=== PATIENT | male | born 1930 | race Caucasian/White ===

== ENCOUNTER 2018-07-06 23:26 | Inpatient (IN) | payer MEDICARE ==
[2018-07-07] LABS: Basophils # (Auto) 0.1 K/mm3 (0.0-0.1); Basophils % (Auto) 1.6 % (0.0-1.8); Eosinophils # (Auto) 0.1 K/mm3 (0.0-0.4); Eosinophils % (Auto) 1.3 % (0.0-4.3); Hematocrit 39.8 % (35.5-45.6); Hemoglobin 13.4 gm/dl (11.8-15.2); Lymphocytes # (Auto) 3.1 K/mm3 (1.2-5.4); Lymphocytes % (Auto) 38.8 % (13.4-35.0); Mean Corpuscular HGB Conc 34 % (32-34); Mean Corpuscular Volume 114 fl (84-94); Monocytes # (Auto) 1.1 K/mm3 (0.0-0.8); Monocytes % (Auto) 14.2 % (0.0-7.3); Platelet Count 196 K/mm3 (140-440); Red Blood Count 3.48 M/mm3 (3.65-5.03); Red Cell Distribution Width 12.8 % (13.2-15.2)
--- NOTE | 2018-07-07 00:05 | Emergency Department Report ---
ED Neuro Deficit HPI - General Chief Complaint: Neuro Symptoms/Deficit Stated Complaint: NUMBNESS IN FEET Time Seen by Provider: 07/06/18 23:42 Source: patient, family, RN notes reviewed Mode of arrival: Ambulatory Limitations: No Limitations - History of Present Illness Initial Comments: Primary care Dr.: Dr. Law Cardiology: Dr. Hugo This is an 88-year-old gentleman who was brought to the hospital by family for possible code stroke. Patient complains of bilateral plantar foot numbness, and subjective right leg numbness, which started yesterday. Symptoms are painless. They're constant. They do not radiate anywhere. He do not have exacerbating or relieving factors. The patient complains of chronic global headache. He indicates that the headache is not sudden or thunderclap in nature. He makes no complaint of jaw claudication or change in vision He believes that his symptoms started yesterday, 24 hours ago. They're constant, they're painless, they do not radiate anywhere, and they don't have exacerbating or relieving factors. -: Sudden Location: left leg, right leg Presenting Symptoms: Absent: Weak/Paralyzed One Side (patient complains of bilateral plantar foot numbness, and subjective right leg numbness and weakness), Sudden, Severe Headache, Blurred/Loss of Vision, Facial Droop/Numbness, Unable to Speak Clearly, Altered Mental Status History of same: No Place: home Severity: mild Quality: weak Improves With: none Worsens With: none Context: gradual onset - Related Data Allergies/Adverse Reactions: Allergies Allergy/AdvReac Type Severity Reaction Status Date / Time No Known Allergies Allergy Unverified 07/06/18 23:29 ED Review of Systems ROS: Stated complaint: NUMBNESS IN FEET Other details as noted in HPI Constitutional: denies: fever Eyes: denies: eye discharge ENT: denies: dental pain, epistaxis Respiratory: denies: cough Cardiovascular: denies: syncope Gastrointestinal: denies: abdominal pain, nausea, vomiting Genitourinary: denies: urgency Musculoskeletal: denies: back pain Skin: denies: rash, lesions Neurological: headache, weakness, numbness Psychiatric: denies: anxiety ED Neuro Physical Exam - General Limitations: No Limitations General appearance: alert, in no apparent distress Suspected Stroke: No - Head Head exam: Present: atraumatic, normocephalic - Eye Eye exam: Present: normal appearance, EOMI, other (visual acuity intact to finger counting, color perception, reading at a close distance). Absent: nystagmus - ENT ENT exam: Present: normal exam, normal orophraynx, mucous membranes moist, normal external ear exam - Neck Neck exam: Present: normal inspection, full ROM. Absent: tenderness, me ningismus - Respiratory Respiratory exam: Present: normal lung sounds bilaterally. Absent: respiratory distress - Cardiovascular Cardiovascular Exam: Present: regular rate, normal rhythm, normal heart sounds. Absent: bradycardia, tachycardia, irregular rhythm, systolic murmur, diastolic murmur, rubs, gallop - GI/Abdominal GI/Abdominal exam: Present: soft. Absent: distended, tenderness, guarding, rebound, rigid, pulsatile mass - Rectal Rectal exam: Present: deferred - Extremities Exam Extremities exam: Present: normal inspection, full ROM, other (2+ pulses noted in the bilateral upper, lower extremities. Compartments soft. No long bony tenderness. The pelvis is stable.). Absent: pedal edema, joint swelling, calf tenderness - Back Exam Back exam: Present: normal inspection, full ROM. Absent: tenderness, CVA tenderness (R), paraspinal tenderness, vertebral tenderness - Neurological Exam Neurological exam: Present: alert, oriented X3, normal gait, other (Extraocular movements intact. Tongue midline. No facial droop. Facial sensation intact to light touch in the V1, V2, V3 distribution bilaterally. 5 and 5 strength in 4 extremities.. Sensation is intact to light touch in 4 extremities.). Absent: motor sensory deficit - NIHSS Assessment Interval: Baseline 1a. Level of Consciousness: alert/keenly responsive 1b. LOC Questions: answers both correctly 1c. LOC Commands: performs tasks correctly 2. Best Gaze: normal 3. Visual: no visual loss 4. Facial Palsy: normal symmetrical movement 5b. Motor Arm Right: no drift 5a. Motor Arm Left: no drift 6a. Motor Leg Left: no drift 6b. Motor Leg Right: no drift 7. Limb Ataxia: absent 8. Sensory: normal 9. Best Language: no aphasia 10. Dysarthria: normal 11. Extinction/Inattention: no abnormality Total Score: 0 Stroke Severity: No Stroke Symptoms - Psychiatric Psychiatric exam: Present: normal affect, normal mood - Skin Skin exam: Present: warm, dry, intact, normal color. Absent: rash ED Course Vital Signs 07/06/18 07/07/18 07/07/18 23:32 00:00 00:10 Temperature 97.3 F L Pulse Rate 108 H 79 Respiratory 18 13 16 Rate Blood Pressure 121/69 128/83 O2 Sat by Pulse 95 97 98 Oximetry 07/07/18 07/07/18 00:30 01:00 Temperature Pulse Rate 70 64 Respiratory 12 19 Rate Blood Pressure 134/73 130/76 O2 Sat by Pulse 98 97 Oximetry - Lab Data Result diagrams: 07/06/18 23:48 07/06/18 23:48 Lab Results 07/06/18 07/06/18 07/06/18 Range/Units 23:48 23:48 23:48 WBC 7.9 (4.5-11.0) K/mm3 RBC 3.48 L (3.65-5.03) M/mm3 Hgb 13.4 (11.8-15.2) gm/dl Hct 39.8 (35.5-45.6) % MCV 114 H (84-94) fl MCH 39 H (28-32) pg MCHC 34 (32-34) % RDW 12.8 L (13.2-15.2) % Plt Count 196 (140-440) K/mm3 Lymph % (Auto) 38.8 H (13.4-35.0) % [place] % (Auto) 14.2 H (0.0-7.3) % Eos % (Auto) 1.3 (0.0-4.3) % Baso % (Auto) 1.6 (0.0-1.8) % Lymph # 3.1 (1.2-5.4) K/mm3 [place] # 1.1 H (0.0-0.8) K/mm3 Eos # 0.1 (0.0-0.4) K/mm3 Baso # 0.1 (0.0-0.1) K/mm3 Seg Neutrophils % 44.1 (40.0-70.0) % Seg Neutrophils # 3.5 (1.8-7.7) K/mm3 PT 13.8 (12.2-14.9) Sec. INR 1.00 (0.87-1.13) APTT 29.7 (24.2-36.6) Sec. Thrombin Time (15.1-19.6) Sec. Sodium 137 (137-145) mmol/L Potassium 5.0 (3.6-5.0) mmol/L Chloride 103.0 (98-107) mmol/L Carbon Dioxide 21 L (22-30) mmol/L Anion Gap 18 mmol/L BUN 21 H (9-20) mg/dL Creatinine 0.7 L (0.8-1.5) mg/dL Estimated GFR > 60 ml/min BUN/Creatinine Ratio 30 % Glucose 131 H (75-100) mg/dL Calcium 9.4 (8.4-10.2) mg/dL Troponin T < 0.010 (0.00-0.029) ng/mL 07/06/18 Range/Units 23:48 WBC (4.5-11.0) K/mm3 RBC (3.65-5.03) M/mm3 Hgb (11.8-15.2) gm/dl Hct (35.5-45.6) % MCV (84-94) fl MCH (28-32) pg MCHC (32-34) % RDW (13.2-15.2) % Plt Count (140-440) K/mm3 Lymph % (Auto) (13.4-35.0) % [place] % (Auto) (0.0-7.3) % Eos % (Auto) (0.0-4.3) % Baso % (Auto) (0.0-1.8) % Lymph # (1.2-5.4) K/mm3 [place] # (0.0-0.8) K/mm3 Eos # (0.0-0.4) K/mm3 Baso # (0.0-0.1) K/mm3 Seg Neutrophils % (40.0-70.0) % Seg Neutrophils # (1.8-7.7) K/mm3 PT (12.2-14.9) Sec. INR (0.87-1.13) APTT (24.2-36.6) Sec. Thrombin Time 16.7 (15.1-19.6) Sec. Sodium (137-145) mmol/L Potassium (3.6-5.0) mmol/L Chloride (98-107) mmol/L Carbon Dioxide (22-30) mmol/L Anion Gap mmol/L BUN (9-20) mg/dL Creatinine (0.8-1.5) mg/dL Estimated GFR ml/min BUN/Creatinine Ratio % Glucose (75-100) mg/dL Calcium (8.4-10.2) mg/dL Troponin T (0.00-0.029) ng/mL Lab Results 07/06/18 07/06/18 07/06/18 Range/Units 23:48 23:48 23:48 WBC 7.9 (4.5-11.0) K/mm3 RBC 3.48 L (3.65-5.03) M/mm3 Hgb 13.4 (11.8-15.2) gm/dl Hct 39.8 (35.5-45.6) % MCV 114 H (84-94) fl MCH 39 H (28-32) pg MCHC 34 (32-34) % RDW 12.8 L (13.2-15.2) % Plt Count 196 (140-440) K/mm3 Lymph % (Auto) 38.8 H (13.4-35.0) % [place] % (Auto) 14.2 H (0.0-7.3) % Eos % (Auto) 1.3 (0.0-4.3) % Baso % (Auto) 1.6 (0.0-1.8) % Lymph # 3.1 (1.2-5.4) K/mm3 [place] # 1.1 H (0.0-0.8) K/mm3 Eos # 0.1 (0.0-0.4) K/mm3 Baso # 0.1 (0.0-0.1) K/mm3 Seg Neutrophils % 44.1 (40.0-70.0) % Seg Neutrophils # 3.5 (1.8-7.7) K/mm3 PT 13.8 (12.2-14.9) Sec. INR 1.00 (0.87-1.13) APTT 29.7 (24.2-36.6) Sec. Thrombin Time (15.1-19.6) Sec. Sodium 137 (137-145) mmol/L Chloride 103.0 (98-107) mmol/L Carbon Dioxide 21 L (22-30) mmol/L BUN 21 H (9-20) mg/dL Creatinine 0.7 L (0.8-1.5) mg/dL Estimated GFR > 60 ml/min BUN/Creatinine Ratio 30 % Glucose 131 H (75-100) mg/dL Calcium 9.4 (8.4-10.2) mg/dL Troponin T < 0.010 (0.00-0.029) ng/mL 07/06/18 Range/Units 23:48 WBC (4.5-11.0) K/mm3 RBC (3.65-5.03) M/mm3 Hgb (11.8-15.2) gm/dl Hct (35.5-45.6) % MCV (84-94) fl MCH (28-32) pg MCHC (32-34) % RDW (13.2-15.2) % Plt Count (140-440) K/mm3 Lymph % (Auto) (13.4-35.0) % [place] % (Auto) (0.0-7.3) % Eos % (Auto) (0.0-4.3) % Baso % (Auto) (0.0-1.8) % Lymph # (1.2-5.4) K/mm3 [place] # (0.0-0.8) K/mm3 Eos # (0.0-0.4) K/mm3 Baso # (0.0-0.1) K/mm3 Seg Neutrophils % (40.0-70.0) % Seg Neutrophils # (1.8-7.7) K/mm3 PT (12.2-14.9) Sec. INR (0.87-1.13) APTT (24.2-36.6) Sec. Thrombin Time 16.7 (15.1-19.6) Sec. Sodium (137-145) mmol/L Chloride (98-107) mmol/L Carbon Dioxide (22-30) mmol/L BUN (9-20) mg/dL Creatinine (0.8-1.5) mg/dL Estimated GFR ml/min BUN/Creatinine Ratio % Glucose (75-100) mg/dL Calcium (8.4-10.2) mg/dL Troponin T (0.00-0.029) ng/mL Vital Signs 07/06/18 07/07/18 23:32 00:10 Temperature 97.3 F L Pulse Rate 108 H Respiratory 18 16 Rate Blood Pressure 121/69 O2 Sat by Pulse 95 98 Oximetry 07/07/18 00:45 This is a normal sinus, 69 beats minute, left axis deviation, prolonged QRS complex, borderline right bundle branch block, not having chest pain, abnormal EKG, unchanged from prior EKG from 09/16/2008, his EKG is not consistent with ST elevation myocardial infarction. - Radiology Data Radiology results: report reviewed, image reviewed Noncontrast CT scan of the brain is interpreted as negative for acute disease - Medical Decision Making Differential diagnosis, including but not limited to: Plantar fasciitis, peripheral neuropathy, lumbar radiculopathy, strokes, transient ischemic attack Assessment and plan: 88-year-old gentleman with a complaint of bilateral plantar foot numbness, and reported weakness and numbness in the right lower extremity, symptoms reportedly started 24 hours ago. The patient has a GCS of 15. The patient has an NIH score of 0 on my assessment. He is afebrile, with reassuring vital signs, and has a benign and unremarkable physical examination. In the history and physical, duration of symptoms reported at greater than 4.5 hours, not a TPA candidate. In addition, given that he reports symptoms present for greater than 24 hours, and given his unremarkable neurologic examination, a large vessel occlusion is quite unlikely, and the patient my pain does not require emergent CT angiogram. The patient was interviewed by consulting stroke neurologist, Dr. Wong, who agreed with the aforementioned, and recommended admission for subacute stroke workup/TIA workup. Discussed recommendation for admission with patient and family, who verbalized understanding, and who are amenable to this plan of care. Case presented to the Hospital physician, Dr. Hugo, who has accepted the patient to the internal medicine service. - Core Measures Measure Exclusions: not indicated - Thrombolytic Inclusion/Exclusion Thrombolytic Exclusion Criteria: Symptom Onset > 3 Hours Thrombolytic Contraindications: Rapidily Improving s/s Critical care attestation.: If time is entered above; I have spent that time in minutes in the direct care of this critically ill patient, excluding procedure time. ED Disposition Clinical Impression: TIA (transient ischemic attack) Disposition: OP ADMIT IP TO THIS HOSP Is pt being admited?: Yes Does the pt Need Aspirin: Yes Condition: Stable
[2018-07-07 00:11] LABS: Partial Thromboplastin Time 29.7 Sec. (24.2-36.6)
[2018-07-07 00:15] LABS: BUN/Creatinine Ratio 30; Blood Urea Nitrogen 21 mg/dL (9-20); Calcium 9.4 mg/dL (8.4-10.2); Hemolysis Index 143
--- NOTE | 2018-07-07 00:18 | Emergency Department Report ---
HPI - General Chief Complaint: Neuro Symptoms/Deficit Time Seen by Provider: 07/06/18 23:42 - HPI HPI: [facility] Tele[facility] Consult [facility] Asked to see this patient in telemedicine consultation. Consultation was performed with assistance of ancillary/medical staff at bedside. Comments: Last Known normal 1 day ago Door Time: 2333 [facility] Contacted: 2354 [facility] first log in: 000 NIHSS assessment time: 003 Call back time: 003 Needle Time: no iv tpa HPI: 88 yom with headache since yesterday presents to ED with one day b/l feet numbness with weakness. He denies any focal weakness in his arms or change in speech or vision. He states he also had mild chest pain today as well. He denies prior stroke and states he takes an asa daily. CT scan head per my review was negative for acute process VSS Gen Wn/Wd in Nad TeleStroke Assessment: LOC: 0 LOC questions: 0 LOC Commands : 0 Gaze : 0 Visual gardner : 0 Facial movements : 0 Upper limb Motor 0 Lower limb Motor 0 Limb Coordination - 0 Sensory - - 1 Language - 0 Speech - 0 Neglect / extinction - 0 NIHSS Score: 1 IMPRESSION TIA RO Stroke Medical Decision Making: Patient is not candidate for alteplase due to non focal / localizing exam and onset greater than 4.5hrs Not an IR candidate as low clinical suspicion for LVO by neurologic asses sment. Recommendations: - Daily antithrombotics to initiate now if no contraindication. - Further work up with Stroke labs, MRI brain, ECHO, NIVS Carotid will be deferred to inpt neurology service - Needs Inpatient Neurology consultation and follow up - Thank you for allowing us to participate in the care of your patient, if there are any questions please don't hesitate to contact us Discussed plan of care with patient/family/hospital staff Physician: Laura Wong DO [facility] ED Review of Systems ROS: Stated complaint: NUMBNESS IN FEET Other details as noted in HPI Physical Exam - Physical Exam Vital Signs: Vital Signs 07/06/18 23:32 Temperature 97.3 F L Pulse Rate 108 H Respiratory 18 Rate Blood Pressure 121/69 O2 Sat by Pulse 95 Oximetry ED Course Vital Signs 07/06/18 23:32 Temperature 97.3 F L Pulse Rate 108 H Respiratory 18 Rate Blood Pressure 121/69 O2 Sat by Pulse 95 Oximetry ED Medical Decision Making - Lab Data Result diagrams: 07/06/18 23:48 Critical care attestation.: If time is entered above; I have spent that time in minutes in the direct care o f this critically ill patient, excluding procedure time. ED Disposition Clinical Impression: TIA (transient ischemic attack) Disposition: DC-[id number] OP ADMIT IP TO THIS HOSP Is pt being admited?: Yes Condition: Stable
[2018-07-07] MEDS ORDERED: BABY ASPIRIN PO ONE (00:48)
--- NOTE | 2018-07-07 01:44 | History and Physical Report ---
History of Present Illness Date of examination: 07/07/18 History of present illness: 88-year-old man with a history of "weak heart" comes to emergency room with complaints of legs feeling numb and heavy Review of systems Constitutional: no weight loss, chills, fever Ears, eyes, nose, mouth and throat: no nasal congestion, no nasal discharge, no sinus pressure, no vision change, no red eye. Neck: No neck pain or rigidity. Cardiovascular: no palpitations, chest pain Respiratory: no cough, shortness of breath Gastrointestinal: no hematochezia, abdominal pain Genitourinary : no frequency , no hematuria Musculoskeletal: no joint swelling or muscle ache Integumentary: no rash, no pruritis Neurological:+ parathesias, no focal weakness Endocrine: no cold or heat intolerance, no polyuria or polydipsia Hematologic/Lymphatic: no easy bruising, no easy bleeding, no gland swelling Allergic/Immunologic: no urticaria, no angioedema. PAST MEDICAL HISTORY: "weak heart" PAST SURGICAL HISTORY: Hernia repair SOCIAL HISTORY: Denies alcohol, drugs, tobacco FAMILY HISTORY: Hypertension Medications and Allergies Allergies Allergy/AdvReac Type Severity Reaction Status Date / Time No Known Allergies Allergy Unverified 07/06/18 23:29 Exam - Physical Exam Narrative exam: General Apperance: The patient lying in bed, breathing comfortable HEENT: Normocephalic, atraumatic. Pupils equally round and reactive to light, EOMI, no sclericterus or JVD or thyromegaly or nodule. , no carotid bruit, mucous membranes moist, no exudate or erythema Heart: S1-S2, regular is rhythm Lungs: Clear to auscultation bilaterally, breathing comfortable Abdomen: Positive bowel sounds, soft, nontender, nondistended, no organomegaly Extremities: No edema cyanosis clubbing Skin: no rash, nodule, warm and dry Neuro: cranial nerves 2-12 intact, speech is fluent, motor/sensory intact - Constitutional Vitals: Temp Pulse Resp BP Pulse Ox 97.3 F L 64 19 130/76 97 07/06/18 23:32 07/07/18 01:00 07/07/18 01:00 07/07/18 01:00 07/07/18 01:00 Results - Labs CBC & Chem 7: 07/06/18 23:48 07/06/18 23:48 Labs: Abnormal lab results 07/06/18 07/06/18 Range/Units 23:48 23:48 RBC 3.48 L (3.65-5.03) M/mm3 MCV 114 H (84-94) fl MCH 39 H (28-32) pg RDW 12.8 L (13.2-15.2) % Lymph % (Auto) 38.8 H (13.4-35.0) % [place] % (Auto) 14.2 H (0.0-7.3) % [place] # 1.1 H (0.0-0.8) K/mm3 Carbon Dioxide 21 L (22-30) mmol/L BUN 21 H (9-20) mg/dL Creatinine 0.7 L (0.8-1.5) mg/dL Glucose 131 H (75-100) mg/dL - Imaging and Cardiology CT Scan - head: report reviewed Assessment and Plan Assessment TIA Weak heart Plan Admit to medicine [place] MRI of the head and neck, echo Do neuro checks, sunscreen Neurologic, Physical and Nutritional Therapy Start Aspirin, Statin, DVT Prophylaxis
[2018-07-07] MEDS ORDERED: BABY ASPIRIN ONE (03:55)
[2018-07-07] MEDS ORDERED: DULCOLAX PR PRN (05:39)
[2018-07-07] MEDS ORDERED: ZOFRAN IV PRN (05:39)
[2018-07-07] MEDS ORDERED: SODIUM CHLORIDE FLUSH SYRINGE 10 ML IV PRN (05:39)
[2018-07-07] MEDS ORDERED: TYLENOL PO PRN (05:39)
[2018-07-07] MEDS ORDERED: APRESOLINE IV PRN (06:38)
--- NOTE | 2018-07-07 08:36 | Cat Scan Report ---
PROCEDURE: CT HEAD/BRAIN WO CON TECHNIQUE: Computerized tomography of the head was performed without contrast material. CT DOSE LENGTH PRODUCT: mGycm HISTORY: neuro deficits <6hrs or sx present upon awakening COMPARISONS: None . FINDINGS: Skull and scalp: Normal . Paranasal sinuses: Normal . Ventricles and subarachnoid spaces: There is mild central and cortical atrophy. There is no hydrocep halus or acute. Cerebrum: No evidence of hemorrhage, acute infarction or mass . There is chronic deep white matter i schemic gliosis. There is large calcifications in the basal ganglia. Cerebellum and brainstem: No evidence of hemorrhage, acute infarction or mass . Vasculature: Normal . IMPRESSION: There is no hemorrhage, edema, mass, mass effect or midline shift. There are chronic inv olutional and ischemic changes. . Dr. Brown was notified by telephone at 11:00 PM central time. This document is electronically signed by Kai Arredondo MD., July 07 2018 12:08:13 AM ET
--- NOTE | 2018-07-07 09:49 | Magnetic Resonance Report ---
MRI OF THE BRAIN WITHOUT CONTRAST: HISTORY: Stroke PROCEDURE: Multiplanar, multisequence MR imaging of the brain without IV contrast was performed. FINDINGS: Compared to the CT head dated 07/06/18. Moderate diffuse volume loss is evident. The brain parenchyma signal intensity and its stone white interface are within normal limits on all sequences otherwise. No evidence for acute ischemia, hemorrhage or mass. No chronic infarct or extra-axial fluid collection. The midline structures are central. The basal cisterns are patent. Normal ventricular size. The orbital cavities and sella turcica demonstrate no abnormality. The visualized paranasal sinuses and mastoid air cells are well aerated. IMPRESSION: Moderate diffuse volume loss. No acute intracranial process.
--- NOTE | 2018-07-07 09:52 | Magnetic Resonance Report ---
MRA HEAD WITHOUT CONTRAST HISTORY: Stroke. [id number] imaging with MIP reformations of the [place] is submitted. The arteries appear widely patent and free of hemodynamically significant stenosis, aneurysm or dissection. 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 There is filling of the right A2 segment via a patent anterior communicating artery. A small left posterior communicating artery is also identified. IMPRESSION: Normal variant MRA head
[2018-07-07] MEDS ORDERED: LOVENOX SUB-Q SCH (10:00)
[2018-07-07] MEDS ORDERED: ASPIRIN PO SCH (10:00)
--- NOTE | 2018-07-07 12:27 | Progress Note ---
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 responsible for symptoms see ED note Objective - Vital Sign Vital Signs - 12hr 07/07/18 07/07/18 07/07/18 00:30 01:00 01:30 Temperature Pulse Rate 70 64 60 Respiratory 12 19 24 Rate Blood Pressure 134/73 130/76 137/76 Blood Pressure [Left] O2 Sat by Pulse 98 97 98 Oximetry 07/07/18 07/07/18 07/07/18 02:00 02:30 03:00 Temperature Pulse Rate 64 65 70 Respiratory 21 17 22 Rate Blood Pressure 130/80 148/82 135/80 Blood Pressure [Left] O2 Sat by Pulse 98 97 98 Oximetry 07/07/18 07/07/18 07/07/18 03:30 03:40 03:50 Temperature Pulse Rate 83 62 62 Respiratory 16 21 13 Rate Blood Pressure 134/77 140/68 129/74 Blood Pressure [Left] O2 Sat by Pulse 83 L 98 97 Oximetry 07/07/18 07/07/18 07/07/18 04:00 04:10 04:20 Temperature Pulse Rate 59 L 62 59 L Respiratory 23 23 17 Rate Blood Pressure 134/75 134/75 129/69 Blood Pressure [Left] O2 Sat by Pulse 96 98 99 Oximetry 07/07/18 07/07/18 07/07/18 04:30 04:40 05:30 Temperature 97.8 F Pulse Rate 62 64 76 Respiratory 26 H 22 16 Rate Blood Pressure 135/73 135/73 Blood Pressure 145/80 [Left] O2 Sat by Pulse 98 99 94 Oximetry 07/07/18 07/07/18 07/07/18 05:55 06:00 06:10 Temperature Pulse Rate 64 63 Respiratory 14 14 Rate Blood Pressure 135/73 133/80 133/80 Blood Pressure [Left] O2 Sat by Pulse 97 100 100 Oximetry 07/07/18 07/07/18 07/07/18 06:20 06:30 06:40 Temperature Pulse Rate 62 64 62 Respiratory 14 13 14 Rate Blood Pressure 135/73 127/75 131/83 Blood Pressure [Left] O2 Sat by Pulse 100 100 100 Oximetry 07/07/18 07/07/18 07/07/18 06:50 07:00 07:10 Temperature Pulse Rate 64 61 66 Respiratory 15 12 13 Rate Blood Pressure 147/86 148/82 147/86 Blood Pressure [Left] O2 Sat by Pulse 100 100 100 Oximetry 07/07/18 07/07/18 07/07/18 07:20 07:30 07:40 Temperature Pulse Rate 62 66 66 Respiratory 16 17 12 Rate Blood Pressure 127/71 127/71 127/71 Blood Pressure [Left] O2 Sat by Pulse 100 100 100 Oximetry 07/07/18 07/07/18 07/07/18 07:50 08:00 08:10 Temperature Pulse Rate 66 59 L 59 L Respiratory 13 13 14 Rate Blood Pressure 127/71 124/67 127/71 Blood Pressure [Left] O2 Sat by Pulse 100 100 100 Oximetry 07/07/18 08:20 Temperature Pulse Rate 60 Respiratory 12 Rate Blood Pressure 131/75 Blood Pressure [Left] O2 Sat by Pulse 100 Oximetry - Laboratory Findings CBC and BMP: 07/06/18 23:48 07/06/18 23:48 Abnormal Lab Findings: Abnormal Labs 07/06/18 07/06/18 23:48 23:48 RBC 3.48 L MCV 114 H MCH 39 H RDW 12.8 L Lymph % (Auto) 38.8 H [place] % (Auto) 14.2 H [place] # 1.1 H Carbon Dioxide 21 L BUN 21 H Creatinine 0.7 L Glucose 131 H
--- NOTE | 2018-07-07 14:16 | Consultation ---
History of Present Illness Consult date: 07/07/18 Consult reason: chest pain, known to you History of present illness: Patient is an 88 year old man who presented with bilateral foot numbness and is undergoing Neurology evaluation for rule out acute CVA. Patient is known to [facility] and a cardiac consultation was requested for evaluation of atypical chest pain. Patient denies chest pain on exertion. He reports mild chest pain at times but is currently chest pain free. He has no unusual shortness of breath or palpitations. His ECG is sinus rhythm with a chronic RBBB. An outpatient echocardiogram done 6 months ago reports a normal left ventricular systolic function, ejection fraction 55%. Medications and Allergies Allergies Allergy/AdvReac Type Severity Reaction Status Date / Time No Known Allergies Allergy Unverified 07/06/18 23:29 Home Medications Medication Instructions Recorded Confirmed Last Taken Type No Known Home Medications [No 07/07/18 07/07/18 Unknown History Reported Home Medications] Active Meds: Active Medications Acetaminophen (Tylenol) 650 mg PO Q4H PRN PRN Reason: Pain, Mild (1-3) Aspirin (Aspirin) 325 mg PO QDAY [facility] Last Admin: 07/07/18 10:05 Dose: 325 mg Documented by: Bisacodyl (Dulcolax) 10 mg SC QDAY PRN PRN Reason: Constipation Enoxaparin Sodium (Lovenox) 40 mg SUB-Q QDAY [facility] Last Admin: 07/07/18 10:05 Dose: 40 mg Documented by: Hydralazine HCl (Apresoline) 5 mg IV Q6H PRN PRN Reason: Hypertension Ondansetron HCl (Zofran) 4 mg IV Q8H PRN PRN Reason: Nausea And Vomiting Pravastatin Sodium (Pravachol) 20 mg PO QHS [facility] Sodium Chloride (Sodium Chloride Flush Syringe 10 Ml) 10 ml IV PRN PRN PRN Reason: LINE FLUSH Physical Examination Vital Signs Temp Pulse Resp BP Pulse Ox 97.3 F L 108 H 18 121/69 95 07/06/18 23:32 07/06/18 23:32 07/06/18 23:32 07/06/18 23:32 07/06/18 23:32 General appearance: no acute distress HEENT: Positive: PERRL Neck: Positive: trachea midline Cardiac: Positive: Reg Rate and Rhythm Lungs: Positive: Decreased Breath Sounds Neuro: Positive: Grossly Intact Extremities: Absent: edema Results 07/06/18 23:48 07/06/18 23:48 Coagulation 07/06/18 Range/Units 23:48 PT 13.8 (12.2-14.9) Sec. INR 1.00 (0.87-1.13) APTT 29.7 (24.2-36.6) Sec. CBC 07/06/18 Range/Units 23:48 WBC 7.9 (4.5-11.0) K/mm3 RBC 3.48 L (3.65-5.03) M/mm3 Hgb 13.4 (11.8-15.2) gm/dl Hct 39.8 (35.5-45.6) % Plt Count 196 (140-440) K/mm3 Lymph # 3.1 (1.2-5.4) K/mm3 [place] # 1.1 H (0.0-0.8) K/mm3 Eos # 0.1 (0.0-0.4) K/mm3 Baso # 0.1 (0.0-0.1) K/mm3 Comprehensive Metabolic Panel 07/06/18 Range/Units 23:48 Sodium 137 (137-145) mmol/L Potassium 5.0 (3.6-5.0) mmol/L Chloride 103.0 (98-107) mmol/L Carbon Dioxide 21 L (22-30) mmol/L BUN 21 H (9-20) mg/dL Creatinine 0.7 L (0.8-1.5) mg/dL Glucose 131 H (75-100) mg/dL Calcium 9.4 (8.4-10.2) mg/dL Assessment and Plan Bilateral foot numbness brain MRI -no acute intracranial process head MRA -normal normal head CT scan Hypertension Atypical Chest pain
--- NOTE | 2018-07-07 16:13 | Progress Note ---
Assessment and Plan Assessment and plan: Patient is an 88 year old man without chronic medical problem except for "weak heart" who presented with bilateral foot numbness r/o CVA and chest pains described as a tightness not jessica. His ECG is sinus rhythm with a chronic RBBB. An outpatient echocardiogram done 6 months ago reports a normal left ventricular systolic function, ejection fraction 55%. 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 Follow-up on current diagnosis CP. Overnight uneventful. Patient denies any chest pain, shortness breath, nausea/vomiting or severe headaches. Imaging, nursing note, chart, labs and old chart reviewed. Discussed with patient, son Simon at bedside. Hospitalist Physical - Physical exam Narrative exam: Gen: cachetic, bmi 15.2, NAD, Awake, Alert, Orientated HEENT: NCAT, EOMI, PERRL, OP Clear Neck: supple, no adenopathy, no thyromegaly, no JVD CVS/Heart: RRR, normal S1S2, pulses present bilaterally Chest/Lungs: CTA B, Symmetrical chest expansion, good air entry bilaterally GI/Abdomen: soft, NTND, good bowel sounds, no guarding or rebound /Bladder: no suprapubic tenderness, no CVA or paraspinal tenderness Extermity/Skin: no c/c/e, no obvious rash MSK: FROM x 4 Neuro: CN 2-12 grossly intact, no new focal deficits Psych: calm - Constitutional Vitals: Temp Pulse Resp BP Pulse Ox 97.8 F 60 12 131/75 100 07/07/18 05:30 07/07/18 08:20 07/07/18 08:20 07/07/18 08:20 07/07/18 08:20 General appearance: Present: no acute distress Results - Labs CBC & Chem 7: 07/06/18 23:48 07/06/18 23:48 Labs: Laboratory Last Values WBC 7.9 K/mm3 (4.5-11.0) 07/06/18 23:48 RBC 3.48 M/mm3 (3.65-5.03) L 07/06/18 23:48 Hgb 13.4 gm/dl (11.8-15.2) 07/06/18 23:48 Hct 39.8 % (35.5-45.6) 07/06/18 23:48 MCV 114 fl (84-94) H 07/06/18 23:48 MCH 39 pg (28-32) H 07/06/18 23:48 MCHC 34 % (32-34) 07/06/18 23:48 RDW 12.8 % (13.2-15.2) L 07/06/18 23:48 Plt Count 196 K/mm3 (140-440) 07/06/18 23:48 Lymph % (Auto) 38.8 % (13.4-35.0) H 07/06/18 23:48 [place] % (Auto) 14.2 % (0.0-7.3) H 07/06/18 23:48 Eos % (Auto) 1.3 % (0.0-4.3) 07/06/18 23:48 Baso % (Auto) 1.6 % (0.0-1.8) 07/06/18 23:48 Lymph # 3.1 K/mm3 (1.2-5.4) 07/06/18 23:48 [place] # 1.1 K/mm3 (0.0-0.8) H 07/06/18 23:48 Eos # 0.1 K/mm3 (0.0-0.4) 07/06/18 23:48 Baso # 0.1 K/mm3 (0.0-0.1) 07/06/18 23:48 Seg Neutrophils % 44.1 % (40.0-70.0) 07/06/18 23:48 Seg Neutrophils # 3.5 K/mm3 (1.8-7.7) 07/06/18 23:48 PT 13.8 Sec. (12.2-14.9) 07/06/18 23:48 INR 1.00 (0.87-1.13) 07/06/18 23:48 APTT 29.7 Sec. (24.2-36.6) 07/06/18 23:48 Thrombin Time 16.7 Sec. (15.1-19.6) 07/06/18 23:48 Sodium 137 mmol/L (137-145) 07/06/18 23:48 Potassium 5.0 mmol/L (3.6-5.0) 07/06/18 23:48 Chloride 103.0 mmol/L (98-107) 07/06/18 23:48 Carbon Dioxide 21 mmol/L (22-30) L 07/06/18 23:48 Anion Gap 18 mmol/L 07/06/18 23:48 BUN 21 mg/dL (9-20) H 07/06/18 23:48 Creatinine 0.7 mg/dL (0.8-1.5) L 07/06/18 23:48 Estimated GFR > 60 ml/min 07/06/18 23:48 BUN/Creatinine Ratio 30 % 07/06/18 23:48 Glucose 131 mg/dL (75-100) H 07/06/18 23:48 Calcium 9.4 mg/dL (8.4-10.2) 07/06/18 23:48 Troponin T < 0.010 ng/mL (0.00-0.029) 07/06/18 23:48 Active Medications - Current Medications Current Medications: Generic Name Dose Route Start Last Admin Trade Name Freq PRN Reason Stop Dose Admin Acetaminophen 650 mg 07/07/18 05:39 Tylenol PO Q4H PRN Pain, Mild (1-3) Aspirin 325 mg 07/07/18 10:00 07/07/18 10:05 Aspirin PO 325 mg QDAY [facility] Administration Bisacodyl 10 mg 07/07/18 05:39 Dulcolax RI QDAY PRN Constipation Enoxaparin Sodium 40 mg 07/07/18 10:00 07/07/18 10:05 Lovenox SUB-Q 40 mg QDAY [facility] Administration Hydralazine HCl 5 mg 07/07/18 06:38 Apresoline IV Q6H PRN Hypertension Ondansetron HCl 4 mg 07/07/18 05:39 Zofran IV Q8H PRN Nausea And Vomiting Pravastatin Sodium 20 mg 07/07/18 22:00 Pravachol PO QHS JAMAR Sodium Chloride 10 ml 07/07/18 05:39 Sodium Chloride Flush Syringe 10 Ml IV PRN PRN LINE FLUSH Nutrition/Malnutrition Assess - Dietary Evaluation Nutrition/Malnutrition Findings: Nutrition Notes Start: 07/07/18 14:05 Freq: Status: Active Protocol: Document 07/07/18 14:05 LM (Rec: 07/07/18 14:28 LM [id number]) Co-Sign 07/07/18 14:05 LP Nutrition Notes 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 Noted lunch at bedside w/100% eaten. Pt stated his usual bodyweight was 165 lb last year. Pt has dentures but said he had no trouble chewing. No temporal or orbital wasting . 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 No Is Patient Ambulatory and/or Out of Bed Yes REE-([place]-St. Jeor-ambulatory/OOB) [ 1632.644 NUTR.[id number]] Kcal/Kg value to use for calculation 41 Approximate Energy Requirements Using 2140 kcal/Kg Calculation Used for Recommendations Kcal/kg Additional Notes Protein needs: 63-78g (1.2-1.5 g/kg) Fluids: 1 ml/kcal Nutrition Intervention Change Diet Order: Continue cardiac diet Add Supplement/Snack (indicate name/kcal Ensure Enlive 1 daily /protein ) Provides kCal: 350 Provides Protein (gm) 20 Goal #1 Continue meet at least 75% of energy and protein needs Goal #2 Weight maintenence and/or gain Anticipated Discharge Needs: Cardiac diet Follow-Up By: 07/09/18 Additional Comments F/U: PO and ONS intakes
--- NOTE | 2018-07-07 17:52 | Consultation ---
History of Present Illness Consult date: 07/07/18 Chief complaint: bilateral intermittant foot numbness History of present illness: This is a very pleasant 88 YO M who presented with bilateral foot numbness. Says when he puts on his house shoes he has trouble feeling them and his feet feel funny. Feels better in "real " shoes. On further questioning his hands also "fall asleep". Not diabetic. Has had some of this previously but seemed more prominent on Friday when this happened. Not currently numb. No recent trauma or illness. Past History Past Medical History: other (heart disease) Past Surgical History: hernia repair Social history: lives with family Family history: hypertension Medications and Allergies Allergies Allergy/AdvReac Type Severity Reaction Status Date / Time No Known Allergies Allergy Unverified 07/06/18 23:29 Home Medications Medication Instructions Recorded Confirmed Last Taken Type No Known Home Medications [No 07/07/18 07/07/18 Unknown History Reported Home Medications] Active Meds: Active Medications Acetaminophen (Tylenol) 650 mg PO Q4H PRN PRN Reason: Pain, Mild (1-3) Aspirin (Aspirin) 325 mg PO QDAY [facility] Last Admin: 07/07/18 10:05 Dose: 325 mg Documented by: Bisacodyl (Dulcolax) 10 mg AR QDAY PRN PRN Reason: Constipation Enoxaparin Sodium (Lovenox) 40 mg SUB-Q QDAY [facility] Last Admin: 07/07/18 10:05 Dose: 40 mg Documented by: Hydralazine HCl (Apresoline) 5 mg IV Q6H PRN PRN Reason: Hypertension Ondansetron HCl (Zofran) 4 mg IV Q8H PRN PRN Reason: Nausea And Vomiting Pravastatin Sodium (Pravachol) 20 mg PO QHS [facility] Sodium Chloride (Sodium Chloride Flush Syringe 10 Ml) 10 ml IV PRN PRN PRN Reason: LINE FLUSH Review of Systems Neurological: parathesias Physical Examination - Vital Signs Vital Signs: Vital Signs Temp Pulse Resp BP Pulse Ox 97.3 F L 108 H 18 121/69 95 07/06/18 23:32 07/06/18 23:32 07/06/18 23:32 07/06/18 23:32 07/06/18 23:32 - EENT EENT: Present: PERRL, mucous membranes dry - Respiratory Respiratory: Present: lungs clear, normal breath sounds - Cardiovascular Cardiovascular: Present: regular rate - Gastrointestinal Gastrointestinal: Present: soft, tender - Neurologic Cranial nerve examination: PERRL, EOMI, VFF, V1/V2/V3 grossly intact, face symmetric Speech examination: intact Sensorimotor examination: intact Motor examination - right side: 08/02: biceps, triceps, wrist flexion, wrist extension, computer systems manager, hip flexors, knee extensors, dorsiflexion, toe extension (EHL), plantarflexion Motor examination - left side: 08/02: biceps, triceps, wrist flexion, wrist extension, computer systems manager, hip flexors, knee extensors, dorsiflexion, toe extension (EHL), plantarflexion Detailed sensory examination: other (decreased to light touch and temp in a stocking and glove dist) Reflex and gait examination: normal gait Reflexes: 0: ankle, bicep, knee, tricep - Psychiatric Psychiatric: Present: mood/affect appropriate Results - Laboratory Findings CBC and BMP: 07/06/18 23:48 07/06/18 23:48 Abnormal Lab Findings: Abnormal Labs 07/06/18 07/06/18 23:48 23:48 RBC 3.48 L MCV 114 H MCH 39 H RDW 12.8 L Lymph % (Auto) 38.8 H [place] % (Auto) 14.2 H [place] # 1.1 H Carbon Dioxide 21 L BUN 21 H Creatinine 0.7 L Glucose 131 H - Diagnostic Findings Additional findings: MRI Brain- no acute ischemia, MRA no large vessel occlusion Assessment and Plan This is an 88 YO M with what appears to be peripheral neuropathy. work up for stroke unremarkable. Recommend: Will check labs for neuropathy Will need outpatient neuro follow up, consider EMG/NCV Pt says his balance is fine but agree with PT eval for gait assessment Continue care for all medical issues as you are doing POC discussed with patient at bedside. Call with questions. No further work up planned, fine for discharge once PT clears and medical issues are stabilized.
[2018-07-07] MEDS ORDERED: PRAVACHOL PO SCH (22:00)
[2018-07-08 05:47] LABS: Hematocrit 38.1 % (35.5-45.6); Hemoglobin 12.9 gm/dl (11.8-15.2); Mean Corpuscular HGB Conc 34 % (32-34); Mean Corpuscular Volume 114 fl (84-94); Platelet Count 190 K/mm3 (140-440); Red Blood Count 3.35 M/mm3 (3.65-5.03); Red Cell Distribution Width 12.4 % (13.2-15.2)
[2018-07-08 06:03] LABS: BUN/Creatinine Ratio 24; Blood Urea Nitrogen 17 mg/dL (9-20); Calcium 8.7 mg/dL (8.4-10.2); Chol/HDL Ratio 3.22 %; HDL Cholesterol 48 mg/dL (40-59); Hemolysis Index 4; LDL Cholesterol,Direct 107 mg/dL (50-130)
[2018-07-08] MEDS ORDERED: LEXISCAN IV ONE ×2 (11:32→11:37)
--- NOTE | 2018-07-08 13:10 | Progress Note ---
Assessment and Plan Bilateral foot numbness brain MRI -no acute intracranial process head MRA -normal normal head CT scan Hypertension Atypical Chest pain Normal MPI this admission Recommendations: No further cardiac work-up is needed Subjective Date of service: 07/08/18 Principal diagnosis: Foot numbness Interval history: No active cardiac complaints No events on tele Objective Vital Signs Temp Pulse Resp BP Pulse Ox 07/08/18 12:05 107/65 07/08/18 12:03 121/61 07/08/18 12:02 107/62 07/08/18 12:00 97/56 07/08/18 11:58 102/65 07/08/18 11:57 112/70 07/08/18 11:51 115/72 07/08/18 11:44 110/82 07/08/18 11:42 114/92 07/08/18 11:40 76 07/08/18 09:17 96 07/08/18 08:17 97.6 F 14 124/78 07/08/18 04:46 98.0 F 76 18 119/67 97 07/07/18 23:50 98.0 F 72 20 103/56 96 07/07/18 21:07 96 07/07/18 17:11 91 H 20 128/76 96 07/07/18 17:10 97.6 F - Physical Examination HEENT: Positive: PERRL Neck: Positive: trachea midline Cardiac: Positive: Reg Rate and Rhythm Lungs: Positive: Normal Exam Neuro: Positive: Grossly Intact Extremities: Absent: edema - Labs and Meds Lipids 07/08/18 Range/Units 05:18 Triglycerides 79 (2-149) mg/dL Cholesterol 155 (50-199) mg/dL HDL Cholesterol 48 (40-59) mg/dL Cholesterol/HDL Ratio 3.22 % CBC 07/08/18 Range/Units 05:18 WBC 5.5 (4.5-11.0) K/mm3 RBC 3.35 L (3.65-5.03) M/mm3 Hgb 12.9 (11.8-15.2) gm/dl Hct 38.1 (35.5-45.6) % Plt Count 190 (140-440) K/mm3 Comprehensive Metabolic Panel 07/08/18 Range/Units 05:18 Sodium 136 L (137-145) mmol/L Potassium 4.0 (3.6-5.0) mmol/L Chloride 103.4 (98-107) mmol/L Carbon Dioxide 25 (22-30) mmol/L BUN 17 (9-20) mg/dL Creatinine 0.7 L (0.8-1.5) mg/dL Glucose 104 H (75-100) mg/dL Calcium 8.7 (8.4-10.2) mg/dL
--- NOTE | 2018-07-08 13:30 | Progress Note ---
Subjective Date of service: 07/08/18 Principal diagnosis: Foot numbness Interval history: in the past when I saw the patient he had headaches they are better now and sed rate is 10... therefore temporal arteriitis very unlikely suspect peripheral neuropathy based on foot numbness symptoms rec check B12 and folate Objective - Vital Sign Vital Signs - 12hr 07/08/18 07/08/18 07/08/18 04:46 08:17 09:17 Temperature 98.0 F 97.6 F Pulse Rate 76 Respiratory 18 14 Rate Blood Pressure 119/67 124/78 O2 Sat by Pulse 97 96 Oximetry 07/08/18 07/08/18 07/08/18 11:40 11:42 11:44 Temperature Pulse Rate 76 Respiratory Rate Blood Pressure 114/92 110/82 O2 Sat by Pulse Oximetry 07/08/18 07/08/18 07/08/18 11:51 11:57 11:58 Temperature Pulse Rate Respiratory Rate Blood Pressure 115/72 112/70 102/65 O2 Sat by Pulse Oximetry 07/08/18 07/08/18 07/08/18 12:00 12:02 12:03 Temperature Pulse Rate Respiratory Rate Blood Pressure 97/56 107/62 121/61 O2 Sat by Pulse Oximetry 07/08/18 12:05 Temperature Pulse Rate Respiratory Rate Blood Pressure 107/65 O2 Sat by Pulse Oximetry - Laboratory Findings CBC and BMP: 07/08/18 05:18 07/08/18 05:18 Abnormal Lab Findings: Abnormal Labs 07/06/18 07/06/18 07/08/18 23:48 23:48 05:18 RBC 3.48 L MCV 114 H MCH 39 H RDW 12.8 L Lymph % (Auto) 38.8 H [place] % (Auto) 14.2 H [place] # 1.1 H Sodium 136 L Carbon Dioxide 21 L BUN 21 H Creatinine 0.7 L 0.7 L Glucose 131 H 104 H 07/08/18 05:18 RBC 3.35 L MCV 114 H MCH 39 H RDW 12.4 L Lymph % (Auto) [place] % (Auto) Wells # Sodium Carbon Dioxide BUN Creatinine Glucose
--- NOTE | 2018-07-08 16:09 | Discharge Summary ---
Providers - Providers Date of Admission: 07/07/18 01:43 Date of discharge: 07/08/18 Attending physician: MILEY FLOREZ 07/07/18 Consult to Physician [CONS] Routine Comment: Consulting Provider: CRISTHIAN SONI Physician Instructions: Reason For Exam: tia 07/07/18 00:01 Consult to Physician [CONS] Urgent Comment: Consulting Provider: KADEEM LEMOS Physician Instructions: Reason For Exam: weak numb 07/07/18 05:40 Occupational Therapy Evaluate and Treat [CONS] Routine Comment: Reason For Exam: Neuro deficits Physical Therapy Evaluation and Treat [CONS] Routine Comment: Reason For Exam: Neuro deficits 07/07/18 13:24 Consult to Physician [CONS] Routine Comment: Consulting Provider: CATHERINE BURGER Physician Instructions: Reason For Exam: chest tightness, pt known to dr. byers [facility] Condition: Stable Hospital course: Patient is an 88 year old man without chronic medical problem except for "weak heart" who presented with bilateral foot numbness r/o CVA and chest pains described as a tightness not jessica. His ECG is sinus rhythm with a chronic RBBB. An outpatient echocardiogram done 6 months ago reports a normal left ventricular systolic function, ejection fraction 55%. Bilateral foot numbness, most likely OA/peripheral neuropathy related with negative MRI: order PT/OT, TIA ruled out, CVA ruled out, pt and son Simon want to hold off on using lyrica or gabapentin, will speak with Neurology, Dr. Ramires, outpt regarding get a EMG Hypertension: low salt diet Atypical Chest pain, costochondritis most likely: Cardiology evaluated Severe malnutrition, bmi 15: consult Functional Architect ECHO reviewed, no further stress test negative Disposition: DC-01 TO HOME OR SELFCARE Time spent for discharge: 36 minutes Core Measure Documentation - Palliative Care Palliative Care/ Comfort Measures: Not Applicable - Core Measures Any of the following diagnoses?: none - VTE Discharge Requirements Deep Vein Thrombosis/Pulmonary Embolism Present on Admission: No Has pt received <5 days of overlap therapy or INR<2.0: No Anticoagulant overlap therapy prescribed at discharge: No Contraindication No Overlap Therapy order at DC: Not Indicated Exam - Physical Exam Narrative exam: Gen: cachetic, bmi 15.2, NAD, Awake, Alert, Orientated HEENT: NCAT, EOMI, PERRL, OP Clear Neck: supple, no adenopathy, no thyromegaly, no JVD CVS/Heart: RRR, normal S1S2, pulses present bilaterally Chest/Lungs: CTA B, Symmetrical chest expansion, good air entry bilaterally GI/Abdomen: soft, NTND, good bowel sounds, no guarding or rebound /Bladder: no suprapubic tenderness, no CVA or paraspinal tenderness Extermity/Skin: no c/c/e, no obvious rash MSK: FROM x 4 Neuro: CN 2-12 grossly intact, no new focal deficits Psych: calm - Constitutional Vitals: Temp Pulse Resp BP Pulse Ox 97.6 F 76 14 107/65 96 07/08/18 08:17 07/08/18 11:40 07/08/18 08:17 07/08/18 12:05 07/08/18 09:17 Plan Activity: up only with assistance, fall precautions, other (no strenous activity) Diet: low salt Special Instructions: physical therapy Follow up with: URIEL STEELE MD [Primary Care Provider] - 7 Days MISAEL RAMIRES MD [Staff Physician] - 7 Days Prescriptions: AtorvaSTATin [Lipitor] 40 mg PO QHS #30 tablet Aspirin [Aspirin TAB] 325 mg PO QDAY #30 tablet
[2018-07-08 16:13] VITALS: BP 113/71
--- NOTE | 2018-07-09 00:58 | Treadmill Report ---
INDICATION FOR THE PROCEDURE: Chest pain. FINDINGS: There is no scintigraphic evidence of myocardial ischemia. The left ventricle is normal in size and systolic function. The left ventricular ejection fraction is measured at 58%. Normal wall motion and wall thickening noted on gated imaging. CONCLUSION: Normal perfusion scan. JOB# [id number] TAINA/JACKIE
[2018-07-13 21:42] LABS: ANA Screen, IFA Positive (Negative)
== END 2018-07-08 16:59 | disposition home health service (06) | DRG 205 ==
LOC: ED 23:26 → EDBD 23:26 → 4A 07-07 01:43
PROVIDERS: ADMIT Internal Medicine; ATTEND Internal Medicine
DX: M94.0 Chondrocostal junction syndrome [Tietze] (principal); E43 Unspecified severe protein-calorie malnutrition; Z68.1 Body mass index [BMI] 19.9 or less, adult; G62.9 Polyneuropathy, unspecified; R51 Headache; I50.9 Heart failure, unspecified; M19.90 Unspecified osteoarthritis, unspecified site; I45.10 Unspecified right bundle-branch block; I44.4 Left anterior fascicular block; I11.0 Hypertensive heart disease with heart failure
CPT/HCPCS: 36415; 70450; 70544; 70551; 78452; 80048; 80061; 82607; 82747; 83036; 83735; 84443; 84484; 85025; 85027; 85610; 85652; 85670; 85730; 86038; 93005; 93010; 93017; 93306; G0378; A9270-GY; A9502; J1650; J2785